=== PATIENT | female | born 1975 | race Caucasian/White ===

== ENCOUNTER → 2018-10-25 | Outpatient (REF) ==
--- NOTE | 2018-10-26 02:38 | REP ---
Clinical: Pain and disability. Technique: AP, lateral, coned-down views of the lumbosacral spine. Findings: Straightening of normal lordosis is nonspecific but may be related to pain/spasm. Moderate/early advanced degenerative disc osteophyte complex at L5-S1 includes endplate sclerosis, osteophytosis, hypertrophic facet changes, and disc space narrowing. Mild multilevel degenerative changes noted throughout the remainder of the examination. Impression: 1. Moderate/early advanced focal degenerative changes at L5-S1. 2. Straightening of normal lordosis nonspecific. Electronically Signed by José Miguel Tucker MD 10/26/2018 02:29 A
== END ==
LOC: M SMT 10:57
PROVIDERS: ATTEND Internal Medicine
DX: M51.37 Other intervertebral disc degeneration, lumbosacral region (principal); M25.78 Osteophyte, vertebrae